=== PATIENT | female | born 1975 | race Caucasian/White ===

== ENCOUNTER 2023-05-07 08:52 | Emergency (ER) | payer MEDICAID ==
[2023-05-07 09:16] VITALS: TEMP 99
--- NOTE | 2023-05-07 09:26 | ERPHSYRPT ---
- History of Present Illness Time Seen by Provider: 05/07/23 09:21 Source: patient Exam Limitations: no limitations Patient Subjective Stated Complaint: Pt reports she has had nausea/vomiting/diarrhea/sore throat/fever/chills/sweats/cough for 2 days. Triage Nursing Assessment: Pt alert and oriented x3. No apparent respiratory distress. Ambulated to ED cot without difficulty. Skin w/p/d. Abdomen soft/round. Physician History: Patient is a 47-year-old white female who presents with a complaint of fever earache sore throat to the point where she cannot eat or drink. She also has had nausea vomiting and diarrhea she has had chills fever and sweats. She is also coughing the cough is productive of a brown sputum. She has been sick for 2 days. Timing/Duration: day(s) (2) Cough Quality/Degree: productive cough, sputum Modifying Factors: Improves With: coughing Associated Symptoms: cough, earache Allergies/Adverse Reactions: No Known Drug Allergies Allergy (Unverified 05/07/23 09:12) Hx Tetanus, Diphtheria Vaccination/Date Given: Yes Hx Influenza Vaccination/Date Given: No Hx Pneumococcal Vaccination/Date Given: No Travel Risk - International Travel Have you traveled outside of the country in past 3 weeks: No - Coronavirus Screening Are you exhibiting any of the following symptoms?: Yes Symptoms: Fever, Cough: New Onset, Vomiting/Diarrhea, Headaches/Body Aches/Fatigue Close contact with a COVID-19 positive Pt in past 14-21 Days: No - Vaccine Status Have you recieved a Covid-19 vaccination: Yes 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 - Review of Systems Constitutional: Fever, Chills, Night Sweats, Weakness Eyes: No Symptoms Ears, Nose, & Throat: Ear Pain, Sinus Drainage, Throat Pain, Painful Swallowing Respiratory: No Cough, No Dyspnea Cardiac: No Chest Pain, No Edema, No Syncope Abdominal/Gastrointestinal: No Abdominal Pain, No Nausea, No Vomiting, No Diarrhea Genitourinary Symptoms: No Dysuria Musculoskeletal: No Back Pain, No Neck Pain Skin: No Rash Neurological: No Dizziness, No Focal Weakness, No Sensory Changes Psychological: No Symptoms Endocrine: No Symptoms All Other Systems: Reviewed and Negative - Past Medical History Pertinent Past Medical History: Yes Neurological History: No Pertinent History ENT History: No Pertinent History Cardiac History: No Pertinent History Respiratory History: No Pertinent History Endocrine Medical History: No Pertinent History Musculoskeletal History: No Pertinent History GI Medical History: Gallbladder Disease History: No Pertinent History Psycho-Social History: No Pertinent History Female Reproductive Disorders: Other Other Medical History: ovarian cysts and bleeding leading to partial hysterectomy - Past Surgical History Past Surgical History: Yes Gastrointestinal: Appendectomy, Cholecystectomy, Other Other Surgical History: gastric bypass - Social History Smoking Status: Current every day smoker Exposure to second hand smoke: Yes Drug Use: none Patient Lives Alone: No - Female History Hx Last Menstrual Period: partial hysterectomy Hx Now: No - Nursing Vital Signs Nursing Vital Signs: Initial Vital Signs Temperature 99 F 05/07/23 09:05 Pulse Rate 104 H 05/07/23 09:05 Respiratory Rate 17 05/07/23 09:05 Blood Pressure 99/62 05/07/23 09:05 O2 Sat by Pulse Oximetry 99 05/07/23 09:05 Pain Scale Pain Intensity 10 - Physical Exam General Appearance: mild distress, alert Eye Exam: PERRL/EOMI, eyes nml inspection Ears, Nose, Throat Exam: normal ENT inspection, TMs normal, pharynx normal, moist mucous membranes, pharyngeal erythema Neck Exam: normal inspection, non-tender, supple, full range of motion Respiratory Exam: normal breath sounds, lungs clear, No respiratory distress Cardiovascular Exam: regular rate/rhythm, normal heart sounds Gastrointestinal/Abdomen Exam: soft, No tenderness Back Exam: normal inspection, No CVA tenderness, No vertebral tenderness Extremity Exam: normal inspection, normal range of motion Neurologic Exam: alert, oriented x 3, cooperative, normal mood/affect, sensation nml, No motor deficits Skin Exam: normal color, warm, dry, No rash Lymphatic Exam: No adenopathy SpO2: 99 - Course Nursing assessment & vital signs reviewed: Yes - Radiology Exams Chest X-ray Interpretation: Reviewed by me, Negative Ordered Tests: Active Orders 24 hr Category Date Time Status CHEST 1 VIEW (PORTABLE) Stat Exams 05/07/23 09:10 Completed CBC W DIFF Stat Lab 05/07/23 09:10 Ordered MONO SCREEN Stat Lab 05/07/23 Ordered Medication Summary Discontinued Medications Generic Name Dose Route Start Last Admin Trade Name Freq PRN Reason Stop Dose Admin Hydrocodone Bitart/Acetaminophen 10 ml 05/07/23 09:57 Hydrocodone/Acetaminophen 5 Ml Udcup PO 05/07/23 09:58 STAT STA Ceftriaxone Sodium 1,000 mg 05/07/23 10:02 Ceftriaxone Sodium 1000 Mg Inj Vial IM 05/07/23 10:03 STAT ONE Lab/Rad Data: Laboratory Results 05/07/23 Range/Units 09:20 Influenza Type A Ag Pending Influenza Type B Ag Pending RSV (PCR) Pending SARS-CoV-2 (PCR) Pending Group A Strep Antibody DETECTED (NEGATIVE) - Progress Progress: unchanged Air Movement: good Blood Culture(s) Obtained: No Antibiotics given: Yes Medical Desision Making - Independent Historian Additional History obtained from: Mother - Diagnostic Testing Diagnostic test were ordered, analyzed, and reviewed by me: Yes Radiological Interpretation: Reviewed by me - Risk of complications Low Risk: Low risk of morbidity from additional dx testing or treatment - Departure Departure Disposition: Home Clinical Impression: Strep pharyngitis Condition: Stable Critical Care Time: No Instructions: Sore Throat, Adult (DC) Prescriptions: Hydrocodone/Acetaminophen [Hydrocodone-Acetamin 2.5-108/5 ml Solution] 10 ml PO Q6H 3 Days #120 ml MDD 4 Cephalexin Mh 500 mg [Keflex 500 mg] 500 mg PO QID #40 cap
--- NOTE | 2023-05-07 09:45 | XRAY ---
Indication: Cough. Comparison: None Portable chest demonstrates normal heart, lungs, and bony thorax.
[2023-05-07 09:46] LABS: Group A Strep DETECTED (NEGATIVE)
[2023-05-07] MEDS ORDERED: HYDROCODONE-ACETAMIN 2.5-108/5 ML SOLUTION PO STA (09:57)
[2023-05-07] MEDS ORDERED: Rocephin 1000 MG INJ IM ONE (10:02)
[2023-05-07 10:04] LABS: INFLUENZA A NEGATIVE (NEGATIVE); INFLUENZA B NEGATIVE (NEGATIVE); RESPIRATORY SYNCTIAL VIRUS NEGATIVE (NEGATIVE); SARS-CoV-2 Xpert Express NEGATIVE (NEGATIVE)
[2023-05-07] MEDS ORDERED: HYDROCODONE-ACETAMIN 2.5-108/5 ML SOLUTION ONE (10:10)
[2023-05-07] MEDS ORDERED: XYLOCAINE 1% HCL 20 ML MDV ONE (10:11)
[2023-05-07] MEDS ORDERED: Rocephin 1000 MG INJ ONE (10:11)
[2023-05-07 10:29] VITALS: BP 128/76; PULSE 75; RESP 18; O2SAT 97
== END 2023-05-07 10:39 | disposition home or self-care (01) ==
LOC: ED 08:52
DX: J02.0 Streptococcal pharyngitis (principal); R50.9 Fever, unspecified; H92.09 Otalgia, unspecified ear; R11.2 Nausea with vomiting, unspecified; R19.7 Diarrhea, unspecified; R05.1 Acute cough; Z79.891 Long term (current) use of opiate analgesic; Z72.0 Tobacco use
CPT/HCPCS: 0241U; 71045; 87651; 96372; 99283; J0696; A9270-GY

== ENCOUNTER 2023-05-15 14:00 | Emergency (ER) | payer MEDICAID ==
--- NOTE | 2023-05-15 14:06 | ERPHSYRPT ---
- History of Present Illness Time Seen by Provider: 05/15/23 14:06 Source: patient Exam Limitations: no limitations Physician History: This is a 47-year-old white female patient who is right handed and last evening tripped over a towel and hit the back of her head and injured her left hand. Patient is up-to-date on her tetanus. She thinks it was 1 to 2 years ago after a cat bite. Patient has a mild headache. She denies loss of consciousness. She has not vomited. There is significant swelling in the back of her head. Patient denies chest pain. Patient denies shortness of breath. Patient denies pain or injury to any other area on her body. Occurred: yesterday Method of Injury: fell Quality: aching Extremities Pain Location: hand: right Modifying Factors: Improves With: movement Associated Symptoms: none Allergies/Adverse Reactions: lactase [From [employer]] Allergy (Intermediate, Verified 05/15/23 14:10) Hives Home Medications: Cephalexin Mh 500 mg [Keflex 500 mg] 500 mg PO TID 05/15/23 [History] Hx Tetanus, Diphtheria Vaccination/Date Given: Yes Hx Influenza Vaccination/Date Given: No Hx Pneumococcal Vaccination/Date Given: No Travel Risk - International Travel Have you traveled outside of the country in past 3 weeks: No - Coronavirus Screening Are you exhibiting any of the following symptoms?: No Close contact with a COVID-19 positive Pt in past 14-21 Days: No - Vaccine Status Have you recieved a Covid-19 vaccination: Yes 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 - Review of Systems Constitutional: No Symptoms Eyes: No Symptoms Ears, Nose, & Throat: No Symptoms Respiratory: No Symptoms Cardiac: No Symptoms Abdominal/Gastrointestinal: No Symptoms Genitourinary Symptoms: No Symptoms Musculoskeletal: Fall, Injury (Right hand), No Neck Pain Skin: Other (Occipital region skin contusion/hematoma) Neurological: Headache Psychological: No Symptoms (Mild) Endocrine: No Symptoms Hematologic/Lymphatic: No Symptoms Immunological/Allergic: No Symptoms All Other Systems: Reviewed and Negative - Past Medical History Pertinent Past Medical History: Yes Neurological History: No Pertinent History ENT History: No Pertinent History Cardiac History: No Pertinent History Respiratory History: No Pertinent History Endocrine Medical History: No Pertinent History Musculoskeletal History: No Pertinent History GI Medical History: Gallbladder Disease History: No Pertinent History Psycho-Social History: No Pertinent History Female Reproductive Disorders: Other Other Medical History: ovarian cysts and bleeding leading to partial hysterectomy - Past Surgical History Past Surgical History: Yes Gastrointestinal: Appendectomy, Cholecystectomy, Other Other Surgical History: gastric bypass - Social History Smoking Status: Current every day smoker Exposure to second hand smoke: Yes Drug Use: none Patient Lives Alone: No - Nursing Vital Signs Nursing Vital Signs: Initial Vital Signs Temperature 97.2 F 05/15/23 14:05 Pulse Rate 74 05/15/23 14:05 Respiratory Rate 20 05/15/23 14:05 Blood Pressure 95/52 05/15/23 14:05 O2 Sat by Pulse Oximetry 99 05/15/23 14:05 Pain Scale Pain Intensity 8 - Physical Exam General Appearance: no apparent distress, alert, anxiety Eyes, Ears, Nose, Throat Exam: normal ENT inspection, moist mucous membranes Neck Exam: normal inspection, non-tender, supple, full range of motion Cardiovascular/Respiratory Exam: chest non-tender, no respiratory distress Abdominal Exam: non-tender Back Exam: normal inspection, normal range of motion, No CVA tenderness, No vertebral tenderness Shoulder Exam: normal inspection, non-tender, no evidence of injury, normal ROM Elbow/Forearm Exam: normal inspection, non-tender, no evidence of injury, normal ROM Wrist Exam: normal inspection, non-tender, no evidence of injury, normal ROM Hand Exam: normal ROM, bone tenderness (Left hand left hand), ecchymosis (Left hand), soft tissue tenderness (Left hand), swelling (Left hand) - Course Nursing assessment & vital signs reviewed: Yes Ordered Tests: Active Orders 24 hr Category Date Time Status HAND (MINIMUM 3 VIEWS) Stat Exams 05/15/23 14:17 Completed HEAD WITHOUT CONTRAST [CT] Stat Exams 05/15/23 14:16 Completed - Progress Progress: improved, pain not gone completely, re-examined Progress Note: 05/15/23 14:32 Patient's medical issues 1 of low complexity. Level complexity in the work-up performed is based on review the patient's past medical history, review the patient's medication list, review the patient's drug allergy list, history present illness and physical findings on examination. The patient's mother provided independent, additional history. The work-up does not require any laboratory studies. We will perform CT scan of the head without contrast and x- ray of the left hand. Patient's tetanus status is up-to-date. 05/15/23 15:23 The following radiographic studies were interpreted by the radiologist and I reviewed the impression: Left hand x-ray shows mildly displaced acute, avulsion type fracture, base of distal fourth phalanx. No other acute findings. CT scan of the head without contrast is a normal study. Counseled pt/family regarding: diagnosis, need for follow-up, rad results Medical Desision Making - Independent Historian Additional History obtained from: Mother - Diagnostic Testing Diagnostic test were ordered, analyzed, and reviewed by me: Yes Radiological Interpretation: Reviewed by me, Teleradiologist Report - Risk of complications The pt has a mod risk of morbidity or mortality based on: Need for prescription drug management - Departure Departure Disposition: Home Clinical Impression: Avulsion fracture of distal phalanx of finger Condition: Stable Critical Care Time: No Referrals: DOCTOR,NO FAMILY [Primary Care Provider] - Follow up/PCP as directed Additional Instructions: Ice pack to all tender area 3 times a day for the next 48 hours. Wear the finger splint for comfort. Add ibuprofen 600 mg orally 3 times a day with food for 5 days if there are no contraindications. Take your other pain medicine as prescribed. Call your primary care provider today to make arrangements for follow-up in the next 5 to 7 days. Prescriptions: Oxycodone HCl/Acetaminophen [Percocet 5-325 mg Tablet] 1 each PO Q8H PRN PRN #6 tablet MDD 3 PRN Reason: Moderate To Severe Pain
[2023-05-15 14:10] VITALS: PULSE 74; RESP 20; TEMP 97.2
--- NOTE | 2023-05-15 15:01 | XRAY ---
Indication: Pain following fall. Comparison: None 3 view left hand demonstrates osteopenia and mildly displaced acute avulsion type fracture base distal 4th phalanx posteriorly. No other bony, articular, or soft tissue abnormalities.
--- NOTE | 2023-05-15 15:03 | XRAY ---
Indication: Head injury following fall. Multiple contiguous axial images obtained through the head without contrast. Comparison: None Normal appearing brain parenchyma, ventricles, and bony calvarium. Visualized paranasal sinuses and mastoid air cells are clear. Left posterior vertex demonstrates incidental 1.1 cm scalp calcified sebaceous cyst. Impression: Normal CT head without contrast exam.
[2023-05-15 15:29] VITALS: BP 100/60; O2SAT 98
== END 2023-05-15 15:42 | disposition home or self-care (01) ==
LOC: ED 14:00
DX: S62.635A Displaced fracture of distal phalanx of left ring finger, initial encounter for closed fracture (principal); W18.40XA Slipping, tripping and stumbling without falling, unspecified, initial encounter; R51.9 Headache, unspecified; Z79.891 Long term (current) use of opiate analgesic; Z79.899 Other long term (current) drug therapy; Z72.0 Tobacco use
CPT/HCPCS: 70450; 73130; 99283

== ENCOUNTER 2023-11-13 16:04 | Emergency (ER) | payer SELFPAY ==
--- NOTE | 2023-11-13 16:11 | ERPHSYRPT ---
- History of Present Illness Time Seen by Provider: 11/13/23 16:11 Historian: patient, family Exam Limitations: no limitations Physician History: This is a 48-year-old white female patient who has no family doctor and presents with abdominal pain, diarrhea and nausea over the last 6 days. Patient states that she is an alcoholic and for the last 2 years has consumed alcoholic beverage on a daily basis for approximately 8 AM to 9 PM every day until she passes out. In the last 11 days she has attempted to detox on her own. In the last 6 days she has had the above-stated symptoms. Patient is not on any medications at this time. She is very anxious. She is very stressed. She is going through divorce at this time. Patient has a history ovarian cyst, partial hysterectomy and has had a gastric bypass surgery in the past. She is a daily smoker of cigarettes. Patient states that in the distant past she was diagnosed with a mild form of ulcerative colitis. She is not on any medications at this time. Timing/Duration: day(s) (11), gradual onset, worse Quality: burning Abdominal Pain Onset Location: generalized abdomen Pain Radiation: no radiation Severity of Pain-Max: moderate Severity of Pain-Current: mild (To moderate) Associated Symptoms: diarrhea, loss of appetite, nausea, weakness Previous symptoms: no prior history, no recent treatment Allergies/Adverse Reactions: lactase [From [employer]] Allergy (Intermediate, Verified 11/13/23 16:10) Hives Hx Tetanus, Diphtheria Vaccination/Date Given: Yes Hx Influenza Vaccination/Date Given: No Hx Pneumococcal Vaccination/Date Given: No Travel Risk - International Travel Have you traveled outside of the country in past 3 weeks: No - Emerging Infectious Disease Are you exhibiting symptoms associated with any current EIDs: No - Review of Systems Constitutional: Weakness Eyes: No Symptoms Ears, Nose, & Throat: No Symptoms Respiratory: No Symptoms Cardiac: No Symptoms Abdominal/Gastrointestinal: Abdominal Pain, Nausea, Diarrhea, Appetite Changes Genitourinary Symptoms: No Symptoms Musculoskeletal: No Symptoms Skin: No Symptoms Neurological: No Symptoms Psychological: No Symptoms Endocrine: No Symptoms Hematologic/Lymphatic: No Symptoms Immunological/Allergic: No Symptoms All Other Systems: Reviewed and Negative - Past Medical History Pertinent Past Medical History: Yes Neurological History: No Pertinent History ENT History: No Pertinent History Cardiac History: No Pertinent History Respiratory History: No Pertinent History Endocrine Medical History: No Pertinent History Musculoskeletal History: No Pertinent History GI Medical History: Gallbladder Disease History: No Pertinent History Psycho-Social History: No Pertinent History Female Reproductive Disorders: Other Other Medical History: ovarian cysts and bleeding leading to partial hysterectomy - Past Surgical History Past Surgical History: Yes Gastrointestinal: Appendectomy, Cholecystectomy, Other Other Surgical History: gastric bypass - Social History Smoking Status: Current every day smoker Exposure to second hand smoke: Yes Drug Use: none Patient Lives Alone: No - Nursing Vital Signs Nursing Vital Signs: Initial Vital Signs Pulse Rate 59 L 11/13/23 16:09 Respiratory Rate 21 11/13/23 16:09 Blood Pressure 113/85 11/13/23 16:09 O2 Sat by Pulse Oximetry 97 11/13/23 16:09 Pain Scale Pain Intensity 0 - Physical Exam General Appearance: no apparent distress, alert, anxiety Eye Exam: PERRL/EOMI, eyes nml inspection Ears, Nose, Throat Exam: normal ENT inspection, moist mucous membranes Neck Exam: normal inspection, non-tender, supple, full range of motion Respiratory Exam: normal breath sounds, lungs clear, airway intact, No chest te nderness, No respiratory distress Cardiovascular Exam: regular rate/rhythm, normal heart sounds, normal peripheral pulses Gastrointestinal/Abdomen Exam: soft, normal bowel sounds, tenderness (Mild diffuse), guarding (Mild diffuse), No rebound Pelvic Exam: not done Rectal Exam: not done Back Exam: normal inspection, normal range of motion, No CVA tenderness, No vertebral tenderness Extremity Exam: normal inspection, normal range of motion, pelvis stable Neurologic Exam: alert, oriented x 3, 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, 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, nml cerebellar function, nml station & gait, sensation nml Skin Exam: normal color, warm, dry Lymphatic Exam: No adenopathy SpO2 Interpretation: normal O2 Delivery: Room Air - Course Nursing assessment & vital signs reviewed: Yes EKG Interpreted by Me: RATE (49), Sinus Elan, NORMAL AXIS, NORMAL INTERVALS, NORMAL QRS, NORMAL ST-T, Other (No acute ischemic changes on today's twelve-lead EKG.) Ordered Tests: Active Orders 24 hr Category Date Time Status EKG-ER Only STAT Care 11/13/23 16:29 Active IV Insertion STAT Care 11/13/23 16:29 Active ABDOMEN AND PELVIS W/0 CONTRAS [CT] Stat Exams 11/13/23 16:30 Completed ACETAMINOPHEN Stat Lab 11/13/23 16:40 Completed AMYLASE Stat Lab 11/13/23 16:40 Completed CBC W DIFF Stat Lab 11/13/23 16:40 Completed CMP Stat Lab 11/13/23 16:40 Completed ETHYL ALCOHOL Stat Lab 11/13/23 16:40 Completed LIPASE Stat Lab 11/13/23 16:40 Completed Lactic Acid Stat Lab 11/13/23 17:00 Completed MAGNESIUM Stat Lab 11/13/23 16:40 Completed SALICYLATE Stat Lab 11/13/23 16:40 Completed UA W/RFX UR CULTURE Stat Lab 11/13/23 19:45 Completed Urine Triage Profile Stat Lab 11/13/23 19:45 Received Medication Summary Generic Name Dose Route Start Last Admin Trade Name Freq PRN Reason Stop Dose Admin Thiamine HCl 100 mg/ 1,011.2 mls @ 250 mls/hr 11/13/23 17:30 11/13/23 17:27 Multivitamins/Minerals 10 ml/ IV 11/13/23 21:32 250 mls/hr Folic Acid 1 mg/ Sodium .Q4H HEIKE Administration Chloride Discontinued Medications Generic Name Dose Route Start Last Admin Trade Name Freq PRN Reason Stop Dose Admin Folic Acid 1 mg 11/13/23 16:37 11/13/23 16:58 Folic Acid 1 Mg Tablet PO 11/13/23 16:38 Not Given STAT ONE Sodium Chloride 1,000 mls @ 999 mls/hr 11/13/23 16:29 11/13/23 18:06 Sodium Chloride 0.9% 1000 Ml IV 11/13/23 17:29 Infused .Q1H1M STA Infusion Sodium Chloride Confirm 11/13/23 17:00 Sodium Chloride 0.9% 1000 Ml Administered 11/13/23 17:01 Dose 1,000 mls @ ud .ROUTE .STK-MED ONE Lorazepam 1 mg 11/13/23 16:29 11/13/23 17:03 Lorazepam 2 Mg/1 Ml 2 Mg Vial IV 11/13/23 16:30 1 mg STAT ONE Administration Lorazepam Confirm 11/13/23 17:00 Lorazepam 2 Mg/1 Ml 2 Mg Vial Administered 11/13/23 17:01 Dose 2 mg .ROUTE .STK-MED ONE Multivitamins Therapeutic 1 tab 11/13/23 16:37 11/13/23 16:58 Multivitamins,Therapeutic 1 Tab Tab PO 11/13/23 16:38 Not Given STAT ONE Ondansetron HCl 4 mg 11/13/23 16:29 11/13/23 17:03 Ondansetron Hcl 4 Mg/2 Ml Vial IV 11/13/23 16:30 4 mg STAT ONE Administration Ondansetron HCl Confirm 11/13/23 16:59 Ondansetron Hcl 4 Mg/2 Ml Vial Administered 11/13/23 17:00 Dose 4 mg .ROUTE .STK-MED ONE Pantoprazole Sodium 40 mg 11/13/23 16:29 11/13/23 17:03 Pantoprazole 40 Mg Vial IV 11/13/23 16:30 40 mg STAT ONE Administration Pantoprazole Sodium Confirm 11/13/23 17:00 Pantoprazole 40 Mg Vial Administered 11/13/23 17:01 Dose 40 mg IV .STK-MED ONE Thiamine HCl 100 mg 11/13/23 16:37 11/13/23 16:58 Thiamine Hcl 100 Mg Tablet PO 11/13/23 16:38 Not Given STAT ONE Lab/Rad Data: Laboratory Result Diagrams 11/13/23 16:40 11/13/23 16:40 Laboratory Results 11/13/23 11/13/23 11/13/23 Range/Units 19:45 17:00 16:40 WBC (4.0-10.5) x10^3/uL RBC (4.1-5.4) x10^6/uL Hgb (12.0-16.0) g/dL Hct (35-47) % MCV (78-100) fL MCH (26-32) pg MCHC (32-36) g/dL RDW (11.5-14.0) % Plt Count (150-450) x10^3/uL MPV (7.5-11.0) fL Gran % (36.0-66.0) % Immature Gran % (Auto) (0.00-0.4) % Nucleat RBC Rel Count (0.00-0.1) % Eos # (Auto) (0-0.5) x10^3/uL Immature Gran # (Auto) (0.00-0.03) x10^3u/L Absolute Lymphs (auto) (1.0-4.6) x10^3/uL Absolute Monos (auto) (0.0-1.3) x10^3/uL Absolute Nucleated RBC (0.00-0.01) x10^3u/L Lymphocytes % (24.0-44.0) % Monocytes % (0.0-12.0) % Eosinophils % (0.00-5.0) % Basophils % (0.0-0.4) % Absolute Granulocytes (1.4-6.9) x10^3/uL Basophils # (0-0.4) x10^3/uL Sodium (135-145) mmol/L Potassium (3.5-5.1) mmol/L Chloride (98-107) mmol/L Carbon Dioxide (22-30) mmol/L Anion Gap (5-15) MEQ/L BUN (7-17) mg/dL Creatinine (0.52-1.04) mg/dL Estimated GFR ML/MIN Glucose (74-106) mg/dL Lactic Acid 0.8 (0.4-2.0) Calcium (8.4-10.2) mg/dL Magnesium 1.9 (1.6-2.3) mg/dL Total Bilirubin (0.2-1.3) mg/dL AST (14-36) U/L ALT (0-35) U/L Alkaline Phosphatase (38-126) U/L Serum Total Protein (6.3-8.2) g/dL Albumin (3.5-5.0) g/dL Amylase (30-110) U/L Lipase (23-300) U/L Urine Color Dark Yellow A (Yellow) Urine Appearance Clear (Clear) Urine pH 5.5 (4.6-8.0) Ur Specific Volcano 1.025 (1.005-1.030) Urine Protein Negative (Negative) Urine Glucose (UA) Negative (Negative) mg/dL Urine Ketones Trace A (Negative) Urine Blood Negative (Negative) Urine Nitrite Negative (Negative) Urine Bilirubin Negative (Negative) Urine Urobilinogen 0.2 (0.2) mg/dL Ur Leukocyte Esterase Negative (Negative) U Hyaline Cast (Auto) NONE SEEN (0-2) /LPF Urine Microscopic RBC 0-2 (0-5) /HPF Urine Microscopic WBC 0-2 (0-5) /HPF Ur Epithelial Cells Rare (None Seen) /HPF Urine Bacteria Rare A (None Seen) /HPF Urine Culture Reflexed NO (NO) Salicylates (2-20) mg/dL Acetaminophen (10-30) ug/ml Ethyl Alcohol (0-10) mg/dL 11/13/23 11/13/23 Range/Units 16:40 16:40 WBC 4.6 (4.0-10.5) x10^3/uL RBC 4.44 (4.1-5.4) x10^6/uL Hgb 14.4 (12.0-16.0) g/dL Hct 40.7 (35-47) % MCV 91.7 (78-100) fL MCH 32.4 H (26-32) pg MCHC 35.4 (32-36) g/dL RDW 11.8 (11.5-14.0) % Plt Count 208 (150-450) x10^3/uL MPV 9.3 (7.5-11.0) fL Gran % 50.4 (36.0-66.0) % Immature Gran % (Auto) 0.2 (0.00-0.4) % Nucleat RBC Rel Count 0.0 (0.00-0.1) % Eos # (Auto) 0.06 (0-0.5) x10^3/uL Immature Gran # (Auto) 0.01 (0.00-0.03) x10^3u/L Absolute Lymphs (auto) 1.83 (1.0-4.6) x10^3/uL Absolute Monos (auto) 0.34 (0.0-1.3) x10^3/uL Absolute Nucleated RBC 0.00 (0.00-0.01) x10^3u/L Lymphocytes % 40.0 (24.0-44.0) % Monocytes % 7.4 (0.0-12.0) % Eosinophils % 1.3 (0.00-5.0) % Basophils % 0.7 (0.0-0.4) % Absolute Granulocytes 2.31 (1.4-6.9) x10^3/uL Basophils # 0.03 (0-0.4) x10^3/uL Sodium 143 (135-145) mmol/L Potassium 3.4 L (3.5-5.1) mmol/L Chloride 111 H (98-107) mmol/L Carbon Dioxide 24 (22-30) mmol/L Anion Gap 11.3 (5-15) MEQ/L BUN 12 (7-17) mg/dL Creatinine 0.70 (0.52-1.04) mg/dL Estimated GFR 107.3 ML/MIN Glucose 95 (74-106) mg/dL Lactic Acid (0.4-2.0) Calcium 9.3 (8.4-10.2) mg/dL Magnesium (1.6-2.3) mg/dL Total Bilirubin 0.60 (0.2-1.3) mg/dL AST 34 (14-36) U/L ALT 25 (0-35) U/L Alkaline Phosphatase 66 (38-126) U/L Serum Total Protein 7.5 (6.3-8.2) g/dL Albumin 4.0 (3.5-5.0) g/dL Amylase 76 (30-110) U/L Lipase 108 (23-300) U/L Urine Color (Yellow) Urine Appearance (Clear) Urine pH (4.6-8.0) Ur Specific Volcano (1.005-1.030) Urine Protein (Negative) Urine Glucose (UA) (Negative) mg/dL Urine Ketones (Negative) Urine Blood (Negative) Urine Nitrite (Negative) Urine Bilirubin (Negative) Urine Urobilinogen (0.2) mg/dL Ur Leukocyte Esterase (Negative) U Hyaline Cast (Auto) (0-2) /LPF Urine Microscopic RBC (0-5) /HPF Urine Microscopic WBC (0-5) /HPF Ur Epithelial Cells (None Seen) /HPF Urine Bacteria (None Seen) /HPF Urine Culture Reflexed (NO) Salicylates < 1.0 L (2-20) mg/dL Acetaminophen < 10 L (10-30) ug/ml Ethyl Alcohol < 10 (0-10) mg/dL - Progress Progress: improved, re-examined Progress Note: 11/13/23 17:04 My medical decision making and the assignment of moderate complexity to this patient's medical issues based on review of the patient's past medical history, review the patient's medication list, review the patient's drug allergy list, history present illness and physical findings on examination. The workup in this patient includes placement of intravenous line, infusion of normal saline solution, infusion of Protonix, infusion of Zofran, infusion of Ativan, infusion of a banana bag including thiamine, folic acid and multivitamins, CT scan of the abdomen pelvis, urine drug screen, urinalysis, blood alcohol level, salicylate level and acetaminophen level. Differential diagnosis includes dehydration, urinary tract infection, colitis, alcohol withdrawal, electrolyte abnormalities, 11/13/23 17:58 I interpreted the patient's laboratory data results that have returned. Of those lab results that have returned, there are no acute, emergent medical issues present. The urinalysis is pending. CT scan of abdomen pelvis was interpreted by radiologist and I reviewed the impression. The impression states status post gastric bypass, appendectomy, cholecystectomy and hysterectomy. The remainder of the noncontrasted study is negative for any acute intra-abdominal or intrapelvic abnormality. 11/13/23 20:20 Urinalysis does not show infection. There are trace ketones present. Patient has received at least 1 and half liters of intravenous fluid. Counseled pt/family regarding: lab results, diagnosis, need for follow-up, rad results Medical Desision Making - Independent Historian Additional History obtained from: Mother - Diagnostic Testing Diagnostic test were ordered, analyzed, and reviewed by me: Yes Radiological Interpretation: Reviewed by me, Teleradiologist Report - Risk of complications The pt has a mod risk of morbidity or mortality based on: Need for prescription drug management - Departure Departure Disposition: Home Clinical Impression: Diarrhea, Nausea, Anxiety about health Condition: Stable Critical Care Time: No Referrals: DOCTOR,NO FAMILY [Primary Care Provider] - Follow up/PCP as directed Additional Instructions: Drink plenty of clear liquids before advancing your diet. Avoid fatty greasy spicy foods. Take your medications as prescribed. Follow-up with a primary care provider as an outpatient. Avoid alcohol intake of any kind. Take a multivitamin that has thiamine as well as folic acid in it. Prescriptions: Ondansetron ODT 4 MG [Zofran Odt 4 mg] 4 mg PO Q6H PRN PRN #10 tablet PRN Reason: Vomiting Hydroxyzine HCl 25 mg [Atarax 25 mg] 25 mg PO Q6H PRN #12 tablet PRN Reason: Anxiety
[2023-11-13 16:26] VITALS: TEMP 97.7
[2023-11-13 16:43] LABS: Absolute Neutrophil Ct (ANC) 2.31 x10^3/uL (1.4-6.9); BASOPHIL % 0.7 % (0.0-0.4); Basophil (Absolute #) 0.03 x10^3/uL (0-0.4); Eosinophil % 1.3 % (0.00-5.0); Eosinophil (Absolute #) 0.06 x10^3/uL (0-0.5); Hematocrit 40.7 % (35-47); Hemoglobin 14.4 g/dL (12.0-16.0); IMMATURE GRAN # 0.01 x10^3u/L (0.00-0.03); IMMATURE GRAN % 0.2 % (0.00-0.4); Lymphocyte (Absolute #) 1.83 x10^3/uL (1.0-4.6); Mean Cell Volume 91.7 fL (78-100); Mean Corpuscular Hemoglobin 32.4 pg (26-32); Mean Corpuscular Hgb Concent. 35.4 g/dL (32-36); Mean Platelet Volume 9.3 fL (7.5-11.0); Monocyte (Absolute #) 0.34 x10^3/uL (0.0-1.3); Monocytes % 7.4 % (0.0-12.0); Neutrophil % 50.4 % (36.0-66.0); Platelet Count 208 x10^3/uL (150-450); Red Blood Count 4.44 x10^6/uL (4.1-5.4); Red Cell Distribution Width 11.8 % (11.5-14.0); White Blood Count 4.6 x10^3/uL (4.0-10.5)
[2023-11-13 16:58] LABS: ACETAMINOPHEN < 10 ug/ml (10-30); ALKALINE PHOSPHATASE 66 U/L (38-126); AMYLASE 76 U/L (30-110); ANION GAP 11.3 MEQ/L (5-15); BLOOD UREA NITROGEN 12 mg/dL (7-17); CHLORIDE 111 mmol/L (98-107); Calcium 9.3 mg/dL (8.4-10.2); Carbon Dioxide 24 mmol/L (22-30); EST GLOMERULAR FILTRATION RATE 107.3 ML/MIN; ETHYL ALCOHOL < 10 mg/dL (0-10); Glucose 95 mg/dL (74-106); LIPASE 108 U/L (23-300); Potassium 3.4 mmol/L (3.5-5.1); SALICYLATE < 1.0 mg/dL (2-20); SGOT/AST 34 U/L (14-36); SGPT/ALT 25 U/L (0-35); SODIUM 143 mmol/L (135-145); Total Protein 7.5 g/dL (6.3-8.2)
[2023-11-13] MEDS: THERAGRAN MULTIVITAMIN PO ONE (16:58)
[2023-11-13] MEDS: VITAMIN B-1 100 MG PO ONE (16:58)
[2023-11-13] MEDS: FOLATE 1 MG PO ONE (16:58)
[2023-11-13] MEDS ORDERED: Zofran 4 MG/2 ML VIAL ONE (16:59)
[2023-11-13] MEDS ORDERED: Ativan 2 MG/1 ML VIAL ONE (17:00)
[2023-11-13] MEDS ORDERED: Sodium Chloride 0.9% 1000 ML 1,000 ML ONE (17:00)
[2023-11-13] MEDS ORDERED: PROTONIX 40 MG IV IV ONE (17:00)
--- NOTE | 2023-11-13 17:00 | XRAY ---
Indication: Pain, nausea, and vomiting. Multiple contiguous axial images obtained through abdomen and pelvis without contrast. Impression: None Lung bases clear of infiltrate and effusion. Heart not enlarged. Previous gastric bypass surgery. Noncontrasted stomach and bowel loops appear nonobstructed. Appendectomy, cholecystomy, and hysterectomy reported. No free fluid/air. Remaining liver, pancreas, spleen, adrenal glands, kidneys, ureters, bladder, and aorta are unremarkable for noncontrast exam. Osseous structures intact. No ventral or inguinal hernias. Impression: Gastric bypass surgery, appendectomy, cholecystectomy, and hysterectomy. Remaining CT abdomen/pelvis without contrast exam is negative.
[2023-11-13] MEDS: PROTONIX 40 MG IV IV ONE (17:03)
[2023-11-13] MEDS: Sodium Chloride 0.9% 1000 ML 1,000 ML IV STA (17:03)
[2023-11-13] MEDS: Zofran 4 MG/2 ML VIAL IV ONE (17:03)
[2023-11-13] MEDS: Ativan 2 MG/1 ML VIAL IV ONE (17:03)
[2023-11-13] MEDS: THIAMINE 200 MG/2 ML*** 100 MG, Vitamins For Infusion 10 ML INJECTION*** 10 ML, FOLNATE... IV SCH (17:27)
[2023-11-13 18:17] VITALS: O2SAT 99
[2023-11-13 20:04] VITALS: BP 102/72; PULSE 44; RESP 22
[2023-11-13 20:17] LABS: Appearance Clear (Clear); Bacteria Rare /HPF (None Seen); Bilirubin Negative (Negative); Blood Negative (Negative); Epithelial Cells Rare /HPF (None Seen); Glucose, Urine Negative (Negative); Hyaline Casts NONE SEEN /LPF (0-2); Ketones Trace (Negative); Leukocyte Esterase Negative (Negative); Nitrite Negative (Negative); Ph 5.5 (4.6-8.0); Protein,Urine Dip Negative (Negative); RBC 0-2 /HPF (0-5); Specific Gravity 1.025 (1.005-1.030); Urobilinogen 0.2 mg/dL (0.2); WBC 0-2 /HPF (0-5)
[2023-11-13 20:18] LABS: ADD URINE CULTURE? NO (NO)
[2023-11-13 20:33] LABS: Amphetamine,Urine NEGATIVE (NEGATIVE); Barbiturate,Urine NEGATIVE (NEGATIVE); Benzodiazepine,Urine NEGATIVE (NEGATIVE); Cocaine,Urine NEGATIVE (NEGATIVE); Methadone,Urine NEGATIVE (NEGATIVE); Opiate,Urine NEGATIVE (NEGATIVE); PCP,Urine NEGATIVE (NEGATIVE); THC,Urine POSITIVE (NEGATIVE)
== END 2023-11-13 20:30 | disposition home or self-care (01) ==
LOC: ED 16:04
DX: R10.9 Unspecified abdominal pain (principal); R19.7 Diarrhea, unspecified; R11.0 Nausea; F10.20 Alcohol dependence, uncomplicated; F41.9 Anxiety disorder, unspecified; F17.200 Nicotine dependence, unspecified, uncomplicated
CPT/HCPCS: 36000; 36415; 74176; 80053; 80143; 80179; 80307; 81001; 82077; 82150; 83605; 83690; 83735; 85025; 93005; 96374; 96375; 99284; J2060; J2405